=== PATIENT | male | born 1955 | race Two or more races ===

== ENCOUNTER 2022-02-28 21:40 | Emergency (ER) | payer OTHER ==
[~2022-02-28] VITALS: Ht 188 cm; Wt 111.1 kg
[2022-02-28] MEDS ORDERED: TRAZODONE HCL50 MG (22:41)
[2022-02-28] MEDS ORDERED: KETO10TA2 PO (23:44)
== END 2022-03-01 | disposition home or self-care (01) ==
LOC: ER 21:40
DX: R10.31 Right lower quadrant pain (principal); K76.0 Fatty (change of) liver, not elsewhere classified